=== PATIENT | male | born 1955 | race Caucasian/White ===

== ENCOUNTER 2017-06-19 04:58 | Emergency (ER) ==
[2017-06-19 05:07] VITALS: BP 165/103; TEMP 97.8; BMI 30.7
[2017-06-19] MEDS ORDERED: XOPENEX 1.25 MG NEB STA (05:09)
[2017-06-19] MEDS ORDERED: DUONEB NEB STA (05:09)
[2017-06-19] MEDS ORDERED: SOLU-MEDROL 125 MG ONE (05:23)
[2017-06-19] MEDS ORDERED: SOLU-MEDROL 125 MG IVP STA (05:45)
--- NOTE | 2017-06-19 06:05 | ED.PDOC ---
General ED Provider: Dr. AMY PEARCE-ER Chief Complaint: Shortness of Air Stated Complaint: im working around sawdust and im coughing and wheezing Time Seen by Physician: 05:10 Mode of Arrival: Walk-In Information Source: Patient Exam Limitations: No limitations Primary Care Provider: AMY PEARCE Nursing and Triage Documentation Reviewed and Agree: Yes Reviewed sepsis parameters & appropriate labs ordered?: Yes System Inflammatory Response Syndrome: Not Applicable Sepsis Protocol: For patient's 13 years and over: Temp is 96.8 and below OR 101 and greater Pulse >90 BPM Resp >20/minute Acutely Altered Mental Status Are patient's symptoms suggestive of a new infection, such as: -Pneumonia -Skin, Soft Tissue -Endocarditis -UTI -Bone, Joint Infection -Implantable Device -Acute Abdominal Infection -Wound Infection -Meningitis -Blood Stream Catheter Infection -Unknown Respiratory Complaint Exam - Respiratory Complaint/Exam Onset/Duration: 12hrs Symptoms Are: Still present Timing: Constant, Intermittent Initial Severity: Mild Current Severity: Moderate Location: Chest Character: Reports: Non-productive cough Aggravating: Reports: Allergens Alleviating: Reports: Bronchodilators Associated Signs and Symptoms: Reports: Dyspnea, Wheezing. Denies: Rapid breathing, Fever, Chills, Chest pain, Pleuritic chest pain, Hemoptysis, Dizziness, Calf pain, Calf swelling, Edema, URI, Nasal congestion, Hoarseness, Sinus discomfort, Vomiting, Sore throat, Weight loss, Decreased oral intake, Increased thirst, Increased appetite, Increased urination Related History: Reports: Similar episode History of Healthcare-Acquired Pneumonia: No Home Oxygen Use: No Recent Stress Test: No Recent Echo/LV Function: No Current Antibiotic Use: No Current Asthma Medication Use: Yes Respiratory Distress: Mild Inadequate Respiratory Effort: No Dysphagia Present: No Stridor Present: No JVD Present: No Accessory Muscle Use: No Retractions: Not Present Diminished Breath Sounds: No Sinus Tenderness: None Grunting Respirations: No Kussmaul Respirations: No Differential Diagnoses: CHF, COPD Exacerbation, Pneumonia, Bronchitis Non-Traumatic Chest Pain Syncope: EKG Performed Review of Systems - Review Of Systems Constitutional: Reports: No symptoms Eyes: Reports: No symptoms Ears, Nose, Mouth, Throat: Reports: No symptoms Respiratory: Reports: Cough, Short of air, Wheezing Cardiac: Reports: No symptoms GI: Reports: No symptoms : Reports: No symptoms Musculoskeletal: Reports: No symptoms Skin: Reports: No symptoms Neurological: Reports: No symptoms Endocrine: Reports: No symptoms Hematologic/Lymphatic: Reports: No symptoms All Other Systems: Reviewed and Negative Past Medical History - Past Medical History Previously Healthy: Yes Endocrine: Reports: Unknown Cardiovascular: Reports: Unknown Respiratory: Reports: Unknown Hematological: Reports: Unknown Gastrointestinal: Reports: Unknown Genitourinary: Reports: Unknown Neuro/Psych: Reports: Unknown Musculoskeletal: Reports: Unknown Cancer: Reports: Unknown - Surgical History General Surgical History: Reports: Unknown - Family History Family History: Reports: Unknown - Social History Smoking Status: Current some day smoker Hx Substance Use: No Alcohol Screening: None - Immunizations Tetanus Shot up to Date: No Physical Exam - Physical Exam Appearance: Well-appearing, No pain distress, Well-nourished Eyes: MELINDA, EOMI, Conjunctiva clear ENT: Ears normal Neck: Supple Respiratory: Wheezes Cardiovascular: RRR, Pulses normal, No rub, No murmur GI/: Soft, Nontender, No masses, Bowel sounds normal, No Organomegaly Musculoskeletal: Normal strength Skin: Warm, Dry, Normal color Neurological: Sensation intact, Motor intact, Reflexes intact, Cranial nerves intact, Alert, Oriented Psychiatric: Affect appropriate, Anxious Interpretation - Radiology Interpretation Radiology Interpretation By: ED Physician Radiology Results: Negative Exam Interpreted: CXR - EKG Interpretation Time of EKG #1: 06:07 Rate: Normal Rhythm: Sinus Ectopy: None [place]: NL ST Segment: Normal Interpretation: nsr Re-Evaluation - Re-Evaluation Time of Re-Evaluation: 06:07 Status: Improved Vital Signs Stable: Yes Pain Level: 0 Appearance: NAD Lungs: Clear Skin: Warm and Dry Neuro: Alert and Oriented X3 CV: RRR Critical Care Note - Critical Care Note Total Time (mins): 0 Course - Course Hematology/Chemistry: 06/19/17 05:20 06/19/17 05:20 Orders, Labs, Meds: Lab Review 06/19/17 06/19/17 06/19/17 05:08 05:20 05:20 WBC 8.83 RBC 4.98 Hgb 15.8 Hct 43.6 MCV 87.6 MCH 31.7 H MCHC 36.2 H RDW Coeff of Mame 12.4 Plt Count 174 Immature Gran % (Auto) 0.2 Neut % (Auto) 51.7 Lymph % (Auto) 32.5 [place] % (Auto) 7.4 Eos % (Auto) 7.5 H Baso % (Auto) 0.7 Immature Gran # (Auto) 0.0 Neut # 4.6 Lymph # 2.9 [place] # 0.7 Eos # 0.7 Baso # 0.1 D-Dimer (Manual) Puncture Site Rr O2 Saturation 98.0 ABG pH 7.536 H* ABG pCO2 28.0 L ABG pO2 91.0 ABG HCO3 23.7 ABG Total CO2 25 ABG Base Excess 1 Sonny Test + FiO2 % 21.0 Sodium 141 Potassium 4.1 Chloride 107 Carbon Dioxide 24 Anion Gap 14.1 BUN 11 Creatinine 1.06 Estimated GFR (MDRD) 71.00 BUN/Creatinine Ratio 10.37 Glucose 107 Calcium 9.2 Total Bilirubin 0.5 AST 20 ALT 18 Alkaline Phosphatase 63 Total Creatine Kinase CK-MB (CK-2) CK-MB (CK-2) % Troponin I B-Natriuretic Peptide Total Protein 7.7 Albumin 3.7 Globulin 4.0 Albumin/Globulin Ratio 0.93 06/19/17 06/19/17 06/19/17 05:20 05:20 05:20 WBC RBC Hgb Hct MCV MCH MCHC RDW Coeff of Mame Plt Count Immature Gran % (Auto) Neut % (Auto) Lymph % (Auto) [place] % (Auto) Eos % (Auto) Baso % (Auto) Immature Gran # (Auto) Neut # Lymph # [place] # Eos # Baso # D-Dimer (Manual) 483.99 Puncture Site O2 Saturation ABG pH ABG pCO2 ABG pO2 ABG HCO3 ABG Total CO2 ABG Base Excess Sonny Test FiO2 % Sodium Potassium Chloride Carbon Dioxide Anion Gap BUN Creatinine Estimated GFR (MDRD) BUN/Creatinine Ratio Glucose Calcium Total Bilirubin AST ALT Alkaline Phosphatase Total Creatine Kinase 142 CK-MB (CK-2) 1.2 CK-MB (CK-2) % 0.21170 Troponin I 0.0190 B-Natriuretic Peptide < 10 Total Protein Albumin Globulin Albumin/Globulin Ratio Orders Category Date Time Status ABG DRAW REQUEST Stat CARDIO 06/19/17 05:08 Completed EKG-(ED ONLY) Stat CARDIO 06/19/17 05:08 Completed NEBULIZER TREATMENT Stat CARDIO 06/19/17 05:10 Completed ED IV/MEDIPORT/POWERPORT .ONCE EMERGENCY 06/19/17 05:09 Active ABG Stat LAB 06/19/17 05:08 Completed BNP [B-TYPE NATRIURETIC PEPTIDE] Stat LAB 06/19/17 05:20 Completed CBC W/ AUTO DIFF Stat LAB 06/19/17 05:20 Completed COMPREHENSIVE METABOLIC PANEL Stat LAB 06/19/17 05:20 Completed CREATINE KINASE Stat LAB 06/19/17 05:20 Completed D-DIMER Stat LAB 06/19/17 05:20 Completed TROPONIN I Stat LAB 06/19/17 05:20 Completed 0.9 % Sodium Chloride [Saline Flush] MEDS 06/19/17 05:09 Ordered 1 syr IVF PRN PRN Budesonide/Formoterol Fumarate [Symbicort 160-4.5 Mcg MEDS 06/19/17 06:30 Ordered Inhaler] 2 puff IH BID Ipratropium/Albuterol Neb [Duoneb] MEDS 06/19/17 05:09 Discontinued 1 vial NEB ONCE STA Levalbuterol HCl [Xopenex 1.25 mg] MEDS 06/19/17 05:09 Discontinued 1 vial NEB ONCE STA Methylprednisolone Sod Succ/Pf [Solu-Medrol 125 mg] MEDS 06/19/17 05:23 Discontinued 125 mg .ROUTE .STK-MED ONE Methylprednisolone Sod Succ/Pf [Solu-Medrol 125 mg] MEDS 06/19/17 05:45 Discontinued 125 mg IVP ONCE STA CXR [CHEST, 1V AP ONLY] Stat RADS 06/19/17 05:10 Ordered Medications Generic Name Dose Route Start Last Admin Trade Name Freq PRN Reason Stop Dose Admin Budesonide/Formoterol Fumarate 2 puff 06/19/17 06:30 Symbicort 160-4.5 Mcg Inhaler IH BID SARA Sodium Chloride 1 syr 06/19/17 05:09 06/19/17 05:27 Saline Flush IVF 1 syr PRN PRN Administration To flush IV Discontinued Medications Generic Name Dose Route Start Last Admin Trade Name Freq PRN Reason Stop Dose Admin Albuterol/Ipratropium 1 vial 06/19/17 05:09 06/19/17 05:18 Duoneb NEB 06/19/17 05:10 1 vial ONCE STA Administration Levalbuterol HCl 1 vial 06/19/17 05:09 06/19/17 05:30 Xopenex 1.25 Mg NEB 06/19/17 05:10 1 vial ONCE STA Administration Methylprednisolone Sodium Succinate 125 mg 06/19/17 05:45 06/19/17 05:54 Solu-Medrol 125 Mg IVP 06/19/17 05:46 Not Given ONCE STA Vital Signs: Temp Pulse Resp BP Pulse Ox 06/19/17 05:01 97.8 F 102 H 32 H 165/103 H 96 Departure - Departure Time of Disposition: 06:24 Disposition: HOME SELF-CARE Discharge Problem: COPD exacerbation Instructions: COPD (Chronic Obstructive Pulmonary Disease) (ED) Condition: Good Pt referred to PMD for follow-up: Yes IPMP verified?: No Additional Instructions: continue current meds and inhalers--add symbicort inhaler ---2 puffs bid --- prednisone 30mg x 3 dasy then 20mg x 3 days then 10mg x 3 days--avoiid cig smoke and sawdust--see me in one week in am and resp disease doctor that afternoon()--call my office today for appt Allergies/Adverse Reactions: Allergies No Known Drug Allergies Adverse Reaction (Verified 06/19/17 05:12) Home Medications: Ambulatory Orders Albuterol Sulfate 0.083% Neb [Albuterol 0.083% Neb] 1 vial IH DIRECTED PRN Albuterol Sulfate [Proair Hfa] 2 puff IH Q6H PRN 06/19/17 Tiotropium [place] [Spiriva] 1 cap IH DAILY 06/19/17 Disposition Discussed With: Patient
[2017-06-19] MEDS ORDERED: SYMBICORT 160-4.5 MCG INHALER IH ONE (06:10)
[2017-06-19] MEDS ORDERED: SYMBICORT 160-4.5 MCG INHALER IH SCH (06:30)
--- NOTE | 2017-06-19 07:25 | DI ---
EXAM: Single view of the chest. History: Short of breath Comparison: Chest radiograph 07/11/2007 Findings: Heart size is normal. No focal consolidation. No appreciable pleural fluid and no pneumo thorax. No acute osseous abnormalities. Impression: No acute cardiopulmonary process
== END 2017-06-19 06:35 | disposition home or self-care (01) ==
LOC: ED 04:58
DX: J44.1 Chronic obstructive pulmonary disease with (acute) exacerbation (principal); R06.02 Shortness of breath; F17.210 Nicotine dependence, cigarettes, uncomplicated
CPT/HCPCS: 36415; 80053; 82550; 82553; 82803; 83880; 84484; 85025; 85379; 93005; 93010; 94640; 96374; 99283